=== PATIENT | male | born 1965 | race Caucasian/White ===

== ENCOUNTER 2023-09-21 11:34 | Emergency (ER) | payer OTHER, SELFPAY ==
[2023-09-21] VITALS (9 sets, daily range): BP systolic 149–180; BP diastolic 86–117; BMI 31.8
--- NOTE | 2023-09-21 12:29 | ED.GENMED ---
History of Present Illness
General
Chief Complaint: Blood Pressure Problem
Source: patient
Exam Limitations: none
Time Seen by Provider: 09/21/23 12:20
Nursing documentation reviewed up to this point in time: agreed with
Travel History
Have you had any contact with someone who has COVID-19?: No
Do you have any symptoms of coronavirus? Fever > 100 degrees, chills, cough, shortness of breath, sore throat, loss of taste or smell, muscle aches, or headache?: No
History of Present Illness
History of Present Illness:
58-year-old male was at [facility], revealed getting a physical exam for clearance for a camping trip, they found that his blood pressure was high and his kidney functions were abnormal as well as an abnormal EKG so sent here for
evaluation.
Patient states he knows his blood pressure has been high in the past but never this high. He denies chest pain or trouble breathing. He denies headache, N/V, lightheadedness or dizziness.
Past History
Past History
ED Past Medical History: None
ED Past Surgical History: None
Social History
Tobacco: Non-smoker
Alcohol: None
Personal:
Living: with family
Employment: Employed
Review of Systems
Review of Systems
Allergies reviewed?: Yes
All Other Systems: ROS reviewed and negative except as documented in HPI and ROS
Constitutional: Denies fever or fatigue
Respiratory: Denies trouble breathing
Cardiac: Denies chest pain
ABD/GI: Denies abdominal pain, nausea, vomiting or diarrhea
: Denies dysuria, frequency, flank pain, difficulty voiding, urgency or dark urine
Musculoskeletal: Reports no symptoms
Skin: Reports no symptoms
Neurological: Reports no symptoms
Phy Exam
Physical Exam
Physical Exam:
GENERAL: No acute distress. A&Ox3.
CONSTITUTIONAL: Afebrile.
EYES: Clear, conjunctivae normal
ENMT: moist mucus membranes, Pharynx nl
RESPIRATORY: Regular respirations, nonlabored, lungs clear.
CARDIOVASCULAR: Regular rate and rhythm, no murmurs, no rubs.
GI: Soft, nontender, normal BS
MUSCULOSKELETAL: Moves with ease. Well perfused.
SKIN: Warm, dry, pink
PSYCH: Normal mood and affect. Well kept, interactive and appropriate
NEUROLOGIC: Awake, alert and oriented. No focal neurological deficits
Course
Orders/Labs/Results
Orders:
Orders
09/21/23 12:28
Electrocardiogram (*1) Urgent
Reason for Study: Abnormal EKG
EKG- Treatment ONCE
09/21/23 12:29
CR Chest - 2 Views Urgent
Comment:
Reason For Exam: Hypertensive
09/21/23 12:34
Renal & Bladder US [US Renal With Bladder] Urgent
Comment:
Reason For Exam: hypertension, abdnormal kidney fx
09/21/23 13:06
Complete Blood Count/With Diff Urgent
Comprehensive Metabolic Panel Urgent
Troponin I Urgent
09/21/23 13:35
0.9% Sodium Chloride 1000 ml [Nss] 1,000 ml IV BOLUS
09/21/23 13:49
Urinalysis Reflex To Culture Urgent
Date Specimen was Collected: 09/21/23
Time Specimen was Collected: 13:46
Urine Microscopic Reflex Cult Urgent
09/21/23 15:58
Amlodipine [Norvasc] 5 mg PO NOW STA
Abnormal Lab Results
09/21/23 09/21/23
13:06 13:49
BUN 24 H mg/dl
(9-20)
Creatinine 1.4 H mg/dL
(0.7-1.3)
Ur Occult Blood Reflex 3+ A
(Negative)
Urine RBC 3-6 A /HPF
(0-2)
Urine Bacteria (Reflex) Few A
(Negative)
09/21/23 13:06
09/21/23 13:06
Vital Signs
Initial and Last Documented VS:
Initial Vital Signs
Temp Pulse Resp BP Pulse Ox
98.2 F 66 20 180/117 96
09/21/23 11:38 09/21/23 11:38 09/21/23 11:38 09/21/23 11:38 09/21/23 11:38
Last Documented Vital Signs
Temp Pulse Resp BP Pulse Ox
98.2 F 63 20 156/95 96
09/21/23 11:38 09/21/23 16:15 09/21/23 16:15 09/21/23 16:13 09/21/23 16:15
MDM/Problems Addressed
Differential Diagnosis Includes:
Dehydration, hypertensive urgency, kidney disease,
MDM/Problems Addressed:
58-year-old male was at [facility] a month, revealed getting a physical exam for clearance for a camping trip, they found that his blood pressure was high and his kidney functions were abnormal as well as an abnormal EKG so sent here for
evaluation.
Patient states he knows his blood pressure has been high in the past but never this high. He denies chest pain or trouble breathing. He denies headache, N//V, lightheadedness or dizziness.
Lab work from [facility] shows BUN 30/Creat 1.7
1:30 PM
CBC normal
CMP: BUN/creatinine 24/1.4, otherwise normal
UA: Occult blood 3+, leukocytes negative nitrates negative, RBCs 3-6. Few bacteria. Pt states 'I always have blood in my urine since I was a teenager.'
Troponin WNL
EKG sinus bradycardia
3:35 PM:
Chest x-ray normal
Renal ultrasound unremarkable
Pt stable, instructed to have BMP rechecked in 7-10 days, Stay hydrated.
Out pt lab slip given.
He has no PCP, he was referred to PCP hotline
BP now 167/93
Pt will be started on Norvasc 5 mg daily
Referred to PCP hotline
*EKG
EKG Intrepretation Date: 09/21/23
Rate: bradycardiac
Rhythm: sinus
[place]: normal axis
Interval: normal interval
QRS Pattern: normal QRS
Ischemia: no ischemia
*Critical Care Note
Total Time (30-74mins, 75-104mins- exclusive of procedures): Not Applicable
ED Attending Note
-
Portions of this chart may have been created with voice recognition software.� Occasional wrong word or��sound alike� substitutions may have occurred due to the inherent limitations of voice recognition software.
Discharge Plan
Departure
Patient Disposition: Home (Routine Discharge)
Date of Disposition: 09/21/23
Time of Disposition: 15:50
Patient with high blood pressure during this ER visit?: Yes
Condition: Good
Discharge Problem:
Hypertension, Acute dehydration
Instructions: High Blood Pressure (DC), Amlodipine, Dehydration, Adult ED
Prescriptions:
New
amlodipine [Norvasc] 5 mg tablet
5 mg PO DAILY Qty: 30 0RF
Referrals:
NONE,* [Family Provider] -
Activity Restrictions/Additional Instructions:
As we discussed, someone will be contacting you about getting a primary doctor.
I sent a prescription to your pharmacy for Norvasc 5 mg daily, start it tomorrow as you were given a dose here today
Take the lab order with you to our out patient lab in 7-10 days for repeat blood work
Interventions
Interventions:
*Risk Screen - Suicide Last Done: 09/21/23 11:38
*General Assessment Last Done: 09/21/23 11:38
*Neglect/Abuse Screening Last Done: 09/21/23 11:38
ED- Fall Risk Assessment Last Done: 09/21/23 13:03
*ED COVID-19 Vaccine History Last Done: 09/21/23 13:03
*Nursing Disposition Last Done: 09/21/23 16:25
ED- Cardiac Assessment Last Done: 09/21/23 13:03
ED- Neurological Assessment Last Done: 09/21/23 13:03
ED- Pulmonary Assessment Last Done: 09/21/23 13:03
Discharge Date and Time
Discharge Date/Time: 09/21/23 16:26
Print Language: ROMANSH
[2023-09-21 13:19] LABS: % Basophils 0.6 % (0-2); % Immature Granulocytes 0.2 % (0-0.5); % Lymphocytes 20.7 % (20.5-51.1); % Monocytes 9.3 % (1.7-9.3); % Neutrophils 65.2 % (42.2-75.2); Absolute Eosinophils 0.3 10^3/uL (0-0.7); Absolute Lymphocytes 1.4 10^3/uL (1.2-3.4); Absolute Monocytes 0.6 10^3/uL (0.1-0.6); Absolute Neutrophils 4.3 10^3/uL (1.4-6.5); Hematocrit 44.2 % (39.0-52.0); Hemoglobin 15.4 g/dL (13.0-18.0); Mean Corp Hgb Conc. 34.8 g/dL (33.0-37.0); Mean Corpuscular Hgb 30.4 pg (27.0-31.0); Mean Corpuscular Volume 87.2 fL (80.0-94.0); Mean Platelet Volume 10.2 fL (7.4-10.4); Nucleated Red Blood Cells % 0 % (-); Platelet Count 200 10^3/uL (130-400); Red Blood Cell Count 5.07 10^6/uL (4.70-6.10); Red Cell Dist. Width 12.9 % (11.5-14.5); White Blood Cell Count 6.6 10^3/uL (4.8-10.8)
[2023-09-21 13:34] LABS: ALT (SGPT) 21 U/L (0-50); AST (SGOT) 23 U/L (17-59); Albumin 4.3 g/dl (3.5-5.0); Alkaline Phosphatase 68 U/L (38-126); Blood Urea Nitrogen 24 mg/dl (9-20); Calcium 9.6 mg/dl (8.4-10.2); Carbon Dioxide 29 mmol/L (22-30); Chloride 105 mmol/L (98-107); Estimated Creatinine Clearance 75 ml/min; Glucose 87 mg/dl (70-99); Potassium 4.7 mmol/L (3.5-5.1); Sodium 141 mmol/L (135-145); Total Bilirubin 0.5 mg/dl (0.2-1.3); Total Protein 7.1 g/dl (6.3-8.2); eGFR 57.54
[2023-09-21 13:45] LABS: Troponin I < 0.012 ng/ml
[2023-09-21] MEDS: NSS 1000 IV (13:47)
[2023-09-21 14:08] LABS: Urine Albumin Negative (Neg - Trace); Urine Bilirubin Negative (Negative); Urine Character Clear (Clear); Urine Color Yellow; Urine Glucose Negative (Negative); Urine Ketone Negative (Negative); Urine Leukocyte Negative (Negative); Urine Nitrite Negative (Negative); Urine Occult Blood 3+ (Negative); Urine Urobilinogen Negative (Neg - 1+)
[2023-09-21 15:07] LABS: Urine Bacteria Few (Negative); Urine Squamous Cell 0-2 /LPF (Few); Urine White Cell 0-2 /HPF (0-5)
[2023-09-21] MEDS: NORVASC 5 MG PO (16:13)
== END 2023-09-21 16:26 | disposition home or self-care (01) ==
LOC: EMR 11:34
PROVIDERS: Registered Nurse; EMERGENCY PHYSICIAN Student in an Organized Health Care Education/Training Program
DX: I10 Essential (primary) hypertension (principal); E86.0 Dehydration; R94.31 Abnormal electrocardiogram [ECG] [EKG]
CPT/HCPCS: 99284; 96360; 71046; 76770; 80053; 81003; 81015; 84484; 85025; 93005

== ENCOUNTER → 2023-10-02 07:38 | Outpatient (REF) | payer OTHER, SELFPAY ==
[2023-10-02 09:19] LABS: Blood Urea Nitrogen 21 mg/dl (9-20); Calcium 9.5 mg/dl (8.4-10.2); Carbon Dioxide 29 mmol/L (22-30); Chloride 104 mmol/L (98-107); Glucose 99 mg/dl (70-99); Potassium 4.9 mmol/L (3.5-5.1); Sodium 140 mmol/L (135-145); eGFR 57.54
== END ==
LOC: REG 07:38
PROVIDERS: ATTENDING PHYSICIAN Registered Nurse; FAMILY PHYSICIAN Family Medicine
DX: R03.0 Elevated blood-pressure reading, without diagnosis of hypertension (principal); R94.31 Abnormal electrocardiogram [ECG] [EKG]
CPT/HCPCS: 36415; 80048

== ENCOUNTER → 2023-11-26 13:08 | Outpatient (REF) | payer OTHER, SELFPAY | LOC: RAD 13:08 | PROVIDERS: ATTENDING PHYSICIAN Specialist; FAMILY PHYSICIAN Family Medicine | DX: R31.29 Other microscopic hematuria (principal); Z12.5 Encounter for screening for malignant neoplasm of prostate | CPT/HCPCS: 76770 ==